=== PATIENT | female | born 1965 ===

== ENCOUNTER 2019-07-12 06:00 | Outpatient (RCR) | payer SELFPAY | END 2019-07-27 23:59 | disposition home or self-care (01) | LOC: APT 06:00 | PROVIDERS: Family Provider Nurse Practitioner Family; PCP Nurse Practitioner Family; Referring Provider Nurse Practitioner Family; Visit Provider Nurse Practitioner Family | DX: M21.41 Flat foot [pes planus] (acquired), right foot (principal); M21.42 Flat foot [pes planus] (acquired), left foot; G89.29 Other chronic pain | CPT/HCPCS: 97161 ==

== ENCOUNTER 2021-12-15 06:00 | Outpatient (RCR) | payer SELFPAY | END 2021-12-24 23:59 | disposition home or self-care (01) | LOC: SPT 06:00 | PROVIDERS: Family Provider Nurse Practitioner Family; PCP Nurse Practitioner Family; Referring Provider Family Medicine; Visit Provider Family Medicine | DX: R42 Dizziness and giddiness (principal) | CPT/HCPCS: 95992; 97162 ==